=== PATIENT | male | born 1960 | race Caucasian/White ===

== ENCOUNTER 2016-08-23 07:56 | Observation (INO) | payer OTHER, BC ==
--- NOTE | ~2016-08-23 | CT71 ---
[facility] A Service of [facility] RADIOLOGY TEXT RESULTS PATIENT: ASHLEE POSEY LOCATION: [facility] 56 : 56 UNIT #: [id number] AGE: [address]: Gabriel Simmons MD SEX: M ORDER DR: [id number] [address] [id number] [facility]. [place], [place] [address] [id number] MR#: [id number] Acc #: [id number] NAME: ASHLEE POSEY : 1960 SEX: M STUDY DATE/TIME: 08/23/2016 8:55 UNIT: MARIS ROOM: STUDY DESCRIPTION: CT Head Wo Contrast Attending Physician: Montrell Jackson D.O. Ordering Physician: Montrell Jackson D.O. Primary Care Physician: Ja Fu M.D. MEDICAL IMAGING REPORT This report is preliminary unless electronic signature is present EXAM CT head INDICATIONS Weakness and nausea. TECHNIQUE CT of the head without contrast. COMPARISON None available. TECHNIQUE This CT exam was performed with one or more of the following radiation dose reduction techniques: automatic control, adjustment of mA and/or kV according to patient size, and iterative reconstruction. FINDINGS Axial noncontrast images were obtained from the skull base to the vertex. Ventricular size and configuration are normal. There is no evidence of acute infarct or hemorrhage. There are no extra-axial fluid collections. No mass lesion or mass effect is seen. There are no skull fractures. IMPRESSION Normal noncontrast head CT. Dictated by... Luiz Cooley M.D. THIS IS AN ELECTRONICALLY VERIFIED REPORT Luiz Cooley M.D. at 08/24/2016 6:51 AM RPC/rnr [facility] A Service [facility] RADIOLOGY TEXT RESULTS PATIENT: ASHLEE POSEY LOCATION: [facility] 569 : 56 UNIT #: [id number] AGE: [address]: Gabriel Simmons MD SEX: M ORDER DR: TD: 08/23/2016 15:27 JOB #: [id number] MEDICAL IMAGING REPORT Page 1 of 1 COPY
--- NOTE | ~2016-08-23 | DS ---
Unit #: [id number] #: [id number] Patient: ASHLEE POSEY [id number] [facility]. [address] [address] [id number] MR#: [id number] NAME: ASHLEE POSEY ROOM: 569 Age: 55 Sex: M Admission Date: 08/23/2016 : 1960 Discharge Date: 08/24/2016 Attending Physician: Gabriel Simmons M.D. Primary Care Physician: Ja Fu M.D. DISCHARGE SUMMARY DISCHARGE DIAGNOSES 1. Atypical chest pain. 2. Acid reflux with nausea, resolved. 3. Coronary artery disease with history of percutaneous coronary intervention and stents x3. 4. Hypertension. 5. Hyperlipidemia. 6. Ejection fraction of 55%. 7. Msvf-ea-rughedsq mitral regurgitation and mild tricuspid regurgitation with a right ventricular systolic pressure of 34 millimeters of mercury. DIAGNOSTIC TESTS CARDIOVASCULAR: The patient underwent a two-D echocardiogram, which showed a left ventricular systolic function that is normal with a visually estimated EF of 55%. No regional wall motion abnormalities were noted. Mildly to moderately dilated left atrium. There is edzk-sl-cfcjjaav mitral valve prolapse. Cohe-jx-efgxmtmh mitral regurgitation is present. Mild tricuspid regurgitation is present. Yeiy-hk-yrbjtuii pulmonic valvular regurgitation is present. No evidence of pericardial effusion. Right ventricular systolic pressure is 34 mmHg. MOST RECENT LABORATORY RESULTS: Cholesterol 139, triglycerides 193, LDL 64, HDL 36. Troponin was less than 0.03 x3. White blood cells 8.2, hemoglobin 15.4, hematocrit 45.4, platelets 256. Sodium 135, potassium 3.6, chloride 106, CO2 22, BUN 13, creatinine 0.8, glucose 111. INR 1.1. HOSPITAL COURSE The patient is a 55-year-old man known to Dr. Smalls. His last cardiac catheterization was in 2011 where his left main was normal, and LAD showed luminal irregularities. The left circumflex had kissing stents in the mid portion, which showed chronic total occlusion, retrograde collateral filling of the OM was demonstrated. Angioplasty of the chronically occluded stents was unsuccessful. The RCA is dominant, had a widely patent stent in the RCA. His EF was 50%. Past medical history includes hypertension, hyperlipidemia, coronary artery disease and a hernia repair in 1983. The patient reported that he had dinner around 6 p.m. and had spaghetti. Later that night after he had gone to bed, he woke up with complaints of nausea and some vomiting. He felt a burning pain in his upper chest and his throat. The patient reported that these episodes lasted 5-10 minutes each time and would subside on their own. The patient became concerned and presented to the emergency department. Unit #: [id number] #: [id number] Patient: ASHLEE POSEY While in the emergency department, the patient's EKG was unremarkable, which showed sinus rhythm with a rate of 76 beats per minute with PVCs. The patient's troponin trend was negative. He did have a two-D echocardiogram, which showed normal EF and some valvular disease. The patient's EKG has been stable. The patient had no recurrence of chest pain. He was started on Protonix. Likely his pain was related to a GI etiology, either gastric reflux or GERD. Dr. Smalls has seen the patient today, and she has deemed the patient is stable for discharge. DISCHARGE/FOLLOWUP INSTRUCTIONS 1. The patient will be discharged home. 2. Healthy heart diet. 3. The patient is to follow up with primary care provider regarding acid reflux and GERD. 4. Activity as tolerated. 5. Patient to follow up with Dr. Smalls on October 25, 2016 at 1300 hours. DISCHARGE MEDICATIONS 1. Fish oil 1 tab p.o. daily. 2. Metoprolol 25 mg p.o. b.i.d. 3. Lipitor 20 mg p.o. daily. 4. Altace 10 mg p.o. daily. 5. Aspirin 81 mg p.o. daily. 6. Plavix 75 mg p.o. daily. 7. Protonix 40 mg p.o. daily. Dictated by... Anna Huynh A.P.R.N. for Betsy Smalls M.D. AM/ortega TD: 08/24/2016 10:38 JOB #: [id number] DISCHARGE SUMMARY Page 1 of 1 X Anna Huynh APRN X DISCHARGE SUMMARY
--- NOTE | ~2016-08-23 | HP ---
Unit #: [id number] #: [id number] Patient: ASHLEE POSEY [id number] [facility]. [address] [place], [place] [address] [id number] MR#: [id number] NAME: ASHLEE POSEY ROOM: Age: 55 Sex: M Admission Date: 08/23/2016 : 1960 Attending Physician: Montrell Jackson D.O. Primary Care Physician: Ja Fu M.D. HISTORY AND PHYSICAL CHIEF COMPLAINT Chest burning. HISTORY OF PRESENT ILLNESS The patient is a 55-year-old man known to Dr. Smalls. The patient's last cardiac catheterization was in 2011 where his left main was normal. LAD showed luminal irregularities. Left circumflex "kissing stents" in the mid portion showed chronic total occlusion. Retrograde collateral filling of the OM was demonstrated. Angioplasty of the chronically occluded stents was unsuccessful. The RCA is dominant and had a widely patent stent in the mid RCA. At that time his EF was 50%. Prior to that cath, the patient had an exercise Cardiolite stress test, which showed lateral wall ischemia. In 2003, the patient had 2 stents placed in his left circumflex and a stent in his RCA. Additional past medical history includes hypertension, hyperlipidemia, hernia repair in 1983, and the patient is a nonsmoker. The patient reports that last night he had dinner around 6 p.m. and had spaghetti. The patient states that he woke up 4 times after 11 o'clock with complaints of nausea and vomiting. He felt a burning pain in his upper chest to his throat. He also states that when this happened, his body was "drawing up" and he had mild diaphoresis. The patient states that each time it would happen the pain would last 5-10 minutes and would subside on its own. The patient became concerned and presented to the emergency department. While in the emergency department, the patient's EKG was unremarkable and showed sinus rhythm with a rate of 76 beats per minute with PVCs. The patient's lfrsr-if-sewy troponin was less than 0.05. Upon admission to the ER his blood pressure was noted to be 149/93. The patient has been admitted for further workup. PAST MEDICAL HISTORY 1. Cardiac catheterization from 2011. Left main normal. LAD showed luminal irregularities. Left circumflex kissing stents in the mid portion with chronic total occlusion, retrograde collateral filling of the OM, unsuccessful angioplasty of the chronically occluded stents. RCA was dominant with a widely patent stent in the mid RCA and EF 50%. 2. Exercise Cardiolite from 2011 showed lateral wall ischemia. 3. Cardiac catheterization from 2003. Two stents to the left circumflex and one stent to the RCA. 4. Hypertension. 5. Hyperlipidemia. Unit #: [id number] #: [id number] Patient: ASHLEE POSEY 6. Hernia repair in 1983. 7. Two-D echocardiogram from 2006 showed an EF of 50%. 8. Nonsmoker. PAST SURGICAL HISTORY 1. Cardiac catheterizations, as detailed above. 2. Hernia repair in 1983. ALLERGIES No known allergies. HOME MEDICATIONS 1. Plavix 75 mg p.o. daily. 2. Atorvastatin 20 mg p.o. daily. 3. Metoprolol tartrate 25 mg p.o. b.i.d. 4. Altace 10 mg p.o. daily. 5. Imdur ER 30 mg p.o. daily. 6. Aspirin 81 mg p.o. daily. FAMILY HISTORY Patient states that his father approximately 35 years ago and did have heart disease, but details are unknown. SOCIAL HISTORY The patient works as a plant maintenance supervisor and is able to climb up and down steps and ladders without any shortness of air or chest pain. He lives with his . He is a nonsmoker. He denies any alcohol or illicit drug abuse. REVIEW OF SYSTEMS A 10-point review of systems has been done and is considered, otherwise, negative unless indicated in the HPI. PHYSICAL EXAMINATION GENERAL: The patient is awake, alert, in no acute distress. VITAL SIGNS: Temperature 97.7, heart rate 72, respirations 14, blood pressure upon admission was 149/93, now blood pressure 125/75, oxygenating 94%. HEENT: Head is atraumatic, normocephalic. Pupils are equal, round and reactive. Extraocular movements are intact. No drainage from ears or nares. NECK: Supple. Trachea is midline. No thyromegaly or lymphadenopathy is appreciated. CHEST: The lungs are clear to auscultation bilaterally. CARDIOVASCULAR: S1, S2. Regular rate and rhythm. No murmurs, rubs or gallops appreciated. ABDOMEN: Abdomen is soft, nontender, nondistended. Bowel sounds are present in all 4 quadrants. SKIN: Skin appears to be warm, dry and intact without any unusual rashes or lesions. EXTREMITIES: No clubbing, edema or cyanosis. NEUROLOGIC: The patient is alert and oriented x3. He is pleasant and conversant. No focal deficits. DIAGNOSTIC STUDIES LABORATORY RESULTS: Sgcze-wc-kcou troponin is less than 0.05. White blood cells 8.2, hemoglobin 15.4, hematocrit 45.4, platelets 256. Sodium 135, potassium 3.6, chloride 106, CO2 22, BUN 13, creatinine 0.8, glucose 111. INR 1.1. Unit #: [id number] #: [id number] Patient: ASHLEE POSEY CARDIOVASCULAR: EKG shows sinus rhythm with PVCs. ASSESSMENT 1. Atypical chest pain. 2. Nausea, now resolved, consider GI etiology. 3. Coronary artery disease with history of PCI and stents x2 to the left circumflex and PCI and stent x1 to the RCA. Last cath was in 2011. 4. Abnormal stress test in 2011. 5. Hypertension. 6. Hyperlipidemia. 7. Nonsmoker. PLAN At this time will trend cardiac enzymes and check two-D echocardiogram. Will continue the patient on his Lipitor, Metoprolol, Plavix, Altace and aspirin. Will check a lipid panel, TSH and a mag. Could consider the patient's source of pain from GI and will add a proton pump inhibitor. Dr. Smalls will see the patient. Dictated by Brooks Judge M.D. AM/ortega TD: 08/23/2016 14:23 JOB #: [id number] HISTORY AND PHYSICAL Page 1 of 1 X Anna Huynh APRN X HISTORY AND PHYSICAL
--- NOTE | ~2016-08-23 | EKG ---
PATIENT: ASHLEE POSEY UNIT #: [id number] Ventricular Rate: 76 BPM Atrial Rate: 76 BPM P-R Interval: 166 ms QRS Duration: 104 ms Q-T Interval: 432 ms QTC Calculation(Bezet): 486 ms P [place]: -5 degrees Calculated R [place]: -22 degrees Calculated T [place]: -3 degrees Diagnosis Line: Sinus rhythm with frequent Premature ventricular Diagnosis Line: complexes Diagnosis Line: Inferior infarct , age undetermined Diagnosis Line: Abnormal ECG Diagnosis Line: When compared with ECG of 25-NOV-2011 05:54, Diagnosis Line: Premature ventricular complexes are now Present Diagnosis Line: Confirmed by SE HERNANDEZ MD ([id number]) on Diagnosis Line: 08/23/2016 4:25:14 PM INTERPRETING MD: BRAULIO
--- NOTE | ~2016-08-23 | CT4 ---
[facility] A Service of [facility] RADIOLOGY TEXT RESULTS PATIENT: ASHLEE POSEY LOCATION: [facility] 569-01 : 56 UNIT #: [id number] AGE: [address]: Gabriel Simmons MD SEX: M ORDER DR: [id number] [facility] [address] [facility]. [place], [place] [address] [id number] E MR#: [id number] Acc #: [id number] NAME: ASHLEE POSEY : 1960 SEX: M STUDY DATE/TIME: 08/23/2016 0900 UNIT: [facility] ROOM: STUDY DESCRIPTION: CT Abd and Pelv Wo Cont Attending Physician: Montrell Jackson D.O. Ordering Physician: Montrell Jackson D.O. Primary Care Physician: Ja Fu M.D. MEDICAL IMAGING REPORT This report is preliminary unless electronic signature is present EXAM CT abdomen and pelvis without contrast, 08/23/2016, 0900 hours. CLINICAL HISTORY Weakness, nausea today with right lower back pain for 3-[address] pelvis, 01/15/2010. TECHNIQUE Helical noncontrasted images were obtained from the lung bases through the pubic symphysis without oral or intravenous contrast. Sagittal and coronal reconstructions were performed. Total exam DLP 719 mGy-cm. This CT exam was performed with one or more of the following radiation dose reduction techniques: automatic exposure control, adjustment of mA and/or kV according to patient size, and iterative reconstruction. FINDINGS Images through the lung bases demonstrate hyperinflation but clear lungs. There is no effusion. The distal esophagus is normal. Noncontrasted images through the abdomen demonstrate a normal appearance to the liver, spleen, pancreas, gallbladder, and bile ducts. The adrenal glands are normal. The kidneys demonstrate no mass or stone. There is mild atherosclerotic calcification in the left renal artery near the left kidney. There is atherosclerotic calcification of the abdominal aorta and its branches. The aorta is normal in caliber. There is no adenopathy or ascites. The stomach is contracted and unopacified but appears normal. There is no small bowel distension or small bowel wall thickening. The cecum is normal. The appendix is normal. There is no colonic distension or STS. [facility] A Service of [facility] RADIOLOGY TEXT RESULTS PATIENT: ASHLEE POSEY LOCATION: [facility] 569-01 : 56 UNIT #: [id number] AGE: [address]: Gabriel Simmons MD SEX: M ORDER DR: colonic wall thickening. No CT evidence of diverticulitis. CT pelvis demonstrates a normal appearance to the seminal vesicles and prostate. Bone window images demonstrate moderate spurs in the lower thoracic spine. There is disc height loss and spurring at L2-3 with vacuum phenomena. There is mild facet arthropathy in the lower lumbar levels. There is no fracture or subluxation. There is sclerotic change right greater than left sacroiliac joint on both the sacral and iliac side of the joint. IMPRESSION 1. No acute findings in the abdomen or pelvis. There are no renal or ureteral calculi. 2. Atherosclerotic calcifications are present. The aorta is normal in caliber. 3. The stomach, small bowel, colon, and appendix have a normal noncontrasted appearance. 4. There is mild degenerative disc disease particularly at L2-3. No fracture or subluxation. 5. There is a sclerotic degenerative change at the right sacroiliac joint on both the sacral and iliac sides of the joint. Minimal change at the left sacroiliac joint. Dictated by... Nini Rao M.D. THIS IS AN ELECTRONICALLY VERIFIED REPORT Nini Rao M.D. at 08/24/2016 9:33 AM Anthony TD: 08/23/2016 15:25 JOB #: [id number] MEDICAL IMAGING REPORT Page 1 of 1 COPY
[~2016-08-23 07:56] MED LIST: ALTACE10 M2 PO; ASPIRIN81 M1 PO; IMDUR-ER30 MG PO; LIPITOR20 MG PO; METOPROLOL TAR25 MG PO; PLAVIX PO; TOPROL XL PO
[2016-08-23 08:34] LABS: BASOPHIL# 0.1 X10e3 (0-0.3); BASOPHIL% 0.8 % (0-2.5); EOSINOPHIL# 0.1 X10e3 (0-0.7); EOSINOPHIL% 0.8 % (0.0-7.0); HEMATOCRIT 45.4 % (38.0-50.0); HEMOGLOBIN 15.4 gm/dL (13.0-16.0); LYMPHOCYTE# 2.3 X10e3 (1.0-3.5); LYMPHOCYTE% 27.6 % (17.0-45.0); MEAN CELL VOLUME 91.7 FL (83-96); MEAN CORPUSCULAR HEMOGLOBIN 31.1 PG (28-34); MEAN PLATELET VOLUME 7.6 FL (6.5-11.5); MONOCYTE# 0.7 X10e3 (0-1.0); MONOCYTE% 8.6 % (3.0-12.0); NEUTROPHIL# 5.1 X10e3 (1.5-7.1); NEUTROPHIL% 62.2 % (40-75); PLATELET COUNT 256 X10e3 (140-420); RED BLOOD COUNT 4.95 X10e (3.90-5.60); RED CELL DISTRIBUTION WIDTH 13.3 % (11.0-15.5); WHITE BLOOD COUNT 8.2 X10e3 (4.0-10.5)
[2016-08-23 08:35] LABS: DIFF IND NO
[2016-08-23 08:43] LABS: POC - CKMB 1.3 ng/mL (0.0-7.9); POC - TROPONIN <0.05 ng/mL (<=0.05)
[2016-08-23 08:44] LABS: URINE SOURCE CLEAN CATCH
[2016-08-23 08:46] LABS: INR 1.1; PARTIAL THROMBOPLASTIN TIME 25.8 SECONDS (23.5-31.3); PROTHROMBIN TIME (PATIENT) 11.4 SECONDS (10.0-11.7)
[2016-08-23 08:47] LABS: URINE APPEARANCE CLEAR; URINE BILIRUBIN NEG (NEG); URINE BLOOD NEG (NEG); URINE COLOR YELLOW; URINE GLUCOSE NEG (NEG); URINE KETONE NEG (NEG); URINE LEUKOCYTE ESTERASE NEG (NEG); URINE NITRATE NEG (NEG); URINE PH 6.5 (5-8); URINE PROTEIN NEG (NEG); URINE SPECIFIC GRAVITY 1.016 (1.003-1.035); URINE UROBILINOGEN 0.2 MG/DL (NEG)
[2016-08-23 08:52] LABS: CULTURE INDICATED? NO
[2016-08-23 08:58] LABS: ALBUMIN SERUM 4.4 g/dL (3.5-5.0); BILIRUBIN, DIRECT 0.1 mg/dL (0.0-0.2); BILIRUBIN,INDIRECT 0.9 mg/dL (0.0-0.9); BUN/CREATININE RATIO 16.25; CALCIUM SERUM 8.7 mg/dL (8.4-10.2); CREATININE SERUM 0.8 mg/dL (0.6-1.4); GLOM FILT RATE Estimated 99.2 mL/min (>60); POTASSIUM 3.6 mmol/L (3.5-5.1); PROTEIN TOTAL SERUM 7.3 g/dL (6.0-8.3)
[2016-08-23 10:16] LABS: POC - CKMB <1.0 ng/mL (0.0-7.9); POC - TROPONIN <0.05 ng/mL (<=0.05)
[2016-08-23 14:49] LABS: MAGNESIUM 2.2 mg/dL (1.6-3.0)
[2016-08-23] MEDS ORDERED: OMEGA-3 2100 S1 EACH PO (16:16)
[2016-08-23 17:37] LABS: %MB 2.4 % (0.0-4.0); MB 1.8 ng/ml
[2016-08-23 22:59] LABS: %MB 1.7 % (0.0-4.0); MB 1.6 ng/ml
[2016-08-24] MEDS ORDERED: PROTONIX PO (11:40)
== END 2016-08-24 16:56 | disposition home or self-care (01) | DRG 313 ==
LOC: CED 07:56 → C5C 13:23 → CEDOF 13:23 → CED 13:53 → CEDOF 13:53 → C5C 15:54 → CEDOF 15:54 → C5C 08-24 16:56
PROVIDERS: Emergency Medicine; Internal Medicine Cardiovascular Disease; Nurse Practitioner
DX: R07.89 Other chest pain (principal); I51.7 Cardiomegaly; I08.1 Rheumatic disorders of both mitral and tricuspid valves; I37.1 Nonrheumatic pulmonary valve insufficiency; I25.10 Atherosclerotic heart disease of native coronary artery without angina pectoris; Z95.5 Presence of coronary angioplasty implant and graft; M51.36 Other intervertebral disc degeneration, lumbar region; I10 Essential (primary) hypertension; I70.8 Atherosclerosis of other arteries; E78.5 Hyperlipidemia, unspecified; Z79.82 Long term (current) use of aspirin; Z79.01 Long term (current) use of anticoagulants; Z79.899 Other long term (current) drug therapy; Z82.49 Family history of ischemic heart disease and other diseases of the circulatory system; Z98.890 Other specified postprocedural states
CPT/HCPCS: 36415; 70450; 74176; 80048; 80061; 80076; 81003; 82550; 82553; 82947; 83735; 84443; 84484; 85025; 85610; 85730; 93005; 93306; 96360; 99285; G0378